=== PATIENT | female | born 1965 | race African-American/Black ===

== ENCOUNTER 2017-04-16 10:50 | Emergency (ER) | payer OTHER ==
--- NOTE | ~2017-04-16 | CR142 ---
[facility] A Service of [facility] & [facility] RADIOLOGY TEXT RESULTS PATIENT: ANTHONY VILLA LOCATION: SED : 61 UNIT #: [id number] AGE: [address]: SANDER SERRATO SEX: F ORDER DR: [id number] [place] [id number] E MR#: [id number] Acc #: [id number] NAME: ANTHONY VILLA : 1965 SEX: F STUDY DATE/TIME: 04/16/2017 11:36 UNIT: SED ROOM: STUDY DESCRIPTION: CR Hand Min 3 Views Rt Attending Physician: Sander Serrato Ordering Physician: Sander Serrato Primary Care Physician: Flower Michael M.D. MEDICAL IMAGING REPORT This report is preliminary unless electronic signature is present. EXAM Right hand 04/16/2017. INDICATIONS 51-year-old female with pain from the elbow to the hand since yesterday. Pain in the third and fifth fingers. Patient injured while riding a motorized wheelchair. Hit her entire right arm on a door; 3 views. COMPARISON No comparisons. FINDINGS The bones are osteoporotic. No acute fracture. Degenerative change of the DIP joints of all digits and of the fifth metacarpal phalangeal joint. There are also degenerative changes in the wrist. IMPRESSION 1. Osteoporosis and degenerative change, but no acute fracture. Dictated by... Geraldo Comer M.D. THIS IS AN ELECTRONICALLY VERIFIED REPORT Geraldo Comer M.D. at 04/16/2017 4:00 PM Julian TD: 04/16/2017 15:44 JOB #: [id number] MEDICAL IMAGING REPORT Page 1 of 1
--- NOTE | ~2017-04-16 | CR94 ---
[facility] A Service of [facility] RADIOLOGY TEXT RESULTS PATIENT: ANTHONY VILLA LOCATION: SED : 61 UNIT #: [id number] AGE: [address]: SANDER SERRATO SEX: F ORDER DR: [id number] [place] [id number] E MR#: [id number] Acc #: [id number] NAME: ANTHONY VILLA : 1965 SEX: F STUDY DATE/TIME: 04/16/2017 11:36 UNIT: SED ROOM: STUDY DESCRIPTION: CR Elbow Min 3 Views Rt Attending Physician: Sander Serrato Ordering Physician: Sander Serrato Primary Care Physician: Flower Michael M.D. MEDICAL IMAGING REPORT This report is preliminary unless electronic signature is present. EXAM Right elbow series 04/16/2017 INDICATIONS Pain from the elbow to the hand since yesterday. Stroke patient who injured the arm while riding a motorized wheel chair yesterday. Hit her entire right arm on a door. TECHNIQUE AND COMPARISON 3 views of the right elbow were performed. No comparisons. FINDINGS The bones are osteoporotic. The examination is abnormal, there is a complete supracondylar fracture on the right. It is best demonstrated on the lateral projection. There is an anterior joint effusion. Probable additional subtle nondisplaced radial head fracture. IMPRESSION 1. Abnormal examination. There is a complete supracondylar fracture on the right involving the medial and lateral epicondyles with a small joint effusion. 2. Probable hairline nondisplaced radial head fracture. 3. Osteoporosis. STAT * RESULT Dictated by... Geraldo Comer M.D. THIS IS AN ELECTRONICALLY VERIFIED REPORT [facility] A Service of [facility] RADIOLOGY TEXT RESULTS PATIENT: ANTHONY VILLA LOCATION: SED : 61 UNIT #: [id number] AGE: [address]: SANDER SERRATO SEX: F ORDER DR: Geraldo Comer M.D. at 04/16/2017 1:50 PM Anita TD: 04/16/2017 13:10 JOB #: [id number] MEDICAL IMAGING REPORT Page 1 of 1
--- NOTE | ~2017-04-16 | CR282 ---
[facility] A Service [facility] RADIOLOGY TEXT RESULTS PATIENT: ANTHONY VILLA LOCATION: SED : 61 UNIT #: [id number] AGE: [address]: SANDER SERRATO SEX: F ORDER DR: [id number] [place] [id number] E MR#: [id number] Acc #: [id number] NAME: ANTHONY VILLA : 1965 SEX: F STUDY DATE/TIME: 04/16/2017 11:36 UNIT: SED ROOM: STUDY DESCRIPTION: CR Wrist Min 3 View Rt Attending Physician: Sander Serrato Ordering Physician: Sander Serrato Primary Care Physician: Flowre Michael M.D. MEDICAL IMAGING REPORT This report is preliminary unless electronic signature is present. EXAM Right wrist 04/16/2017. INDICATIONS 51-year-old female with history of stroke, complaining of right wrist, forearm and elbow pain since yesterday. The patient was riding motorized wheelchair and hit her entire right arm on a door. TECHNIQUE 3 views of the right wrist. COMPARISON No comparisons. FINDINGS Exam degraded by nonstandard positioning. Bones are osteoporotic. No acute fracture. Alignment preserved on the lateral view. There is degenerative change in radiocarpal joint and between the proximal distal carpal rows with partial invagination of the distal carpal row proximally. IMPRESSION 1. Osteoporosis and degenerative change. No acute fracture. Dictated by... Geraldo Comer M.D. THIS IS AN ELECTRONICALLY VERIFIED REPORT Geraldo Comer M.D. at 04/17/2017 7:09 AM JANY/lyle TD: 04/16/2017 16:00 JOB #: [id number] [facility] A Service [facility] RADIOLOGY TEXT RESULTS PATIENT: ANTHONY VILLA LOCATION: SED : 61 UNIT #: [id number] AGE: [address]: SANDER SERRATO SEX: F ORDER DR: MEDICAL IMAGING REPORT Page 1 of 1
--- NOTE | ~2017-04-16 | CR133 ---
[facility] A Service of [facility] RADIOLOGY TEXT RESULTS PATIENT: ANTHONY VILLA LOCATION: SED : 61 UNIT #: [id number] AGE: [address]: SANDER SERRATO SEX: F ORDER DR: [id number] [place] [id number] E MR#: [id number] Acc #: [id number] NAME: ANTHONY VILLA : 1965 SEX: F STUDY DATE/TIME: 04/16/2017 11:36 UNIT: SED ROOM: STUDY DESCRIPTION: CR Forearm 2 View Rt Attending Physician: Sander Serrato Ordering Physician: Sander Serrato Primary Care Physician: Flower Michael M.D. MEDICAL IMAGING REPORT This report is preliminary unless electronic signature is present. EXAM Right forearm 04/16/2017. INDICATIONS Pain from the elbow to the hand since yesterday while riding in motorized wheelchair. She hit her entire arm on a door. Prior stroke. TECHNIQUE 2 views of the right forearm. COMPARISON No comparisons. FINDINGS The bones are osteoporotic. There are degenerative changes in the wrist. Although incompletely visualized on this examination, there is a supracondylar fracture on the right. Please see the elbow series for further details. No distinct forearm fracture identified. IMPRESSION 1. Although incompletely imaged on this examination, there is a supracondylar fracture. Please see the elbow series for further details. 2. The bones are osteoporotic. No additional fracture. Degenerative changes as described. Dictated by... Geraldo Comer M.D. THIS IS AN ELECTRONICALLY VERIFIED REPORT Geraldo Comer M.D. at 04/16/2017 4:02 PM JLY/lyle [facility] A Service of [facility] RADIOLOGY TEXT RESULTS PATIENT: ANTHONY VILLA LOCATION: SED : 61 UNIT #: [id number] AGE: [address]: SANDER SERRATO SEX: F ORDER DR: TD: 04/16/2017 15:57 JOB #: [id number] MEDICAL IMAGING REPORT Page 1 of 1
[~2017-04-16 10:50] MED LIST: ALBUTEROL17 G1 IH; CLEOCIN HCL300 M1 PO; COUMADIN5 MG PO; COUMADIN7.5 MG PO; FLONASE 0.05% N16 GM; FLONASE16 GM; LASIX PO; LEXAPRO PO; LISINOPRIL10 MG PO; PHENERGAN VC W120 M1 PO; VICODIN 5/1 TAB 5/50 PO; ZYRTEC10 M2 PO
[2017-04-16] MEDS ORDERED: FLONASE 0.05% N16 G1 (10:56)
[2017-04-16] MEDS ORDERED: NEURONTIN100 MG (10:56)
[2017-04-16] MEDS ORDERED: FLEXERIL10 MG (10:56)
[2017-04-16] MEDS ORDERED: LIPITOR20 MG (10:56)
== END 2017-04-16 14:37 | disposition home or self-care (01) ==
LOC: SED 10:50
DX: S42.411A Displaced simple supracondylar fracture without intercondylar fracture of right humerus, initial encounter for closed fracture (principal); I10 Essential (primary) hypertension; J45.909 Unspecified asthma, uncomplicated; Z79.01 Long term (current) use of anticoagulants; Z91.040 Latex allergy status; W22.8XXA Striking against or struck by other objects, initial encounter; Y92.009 Unspecified place in unspecified non-institutional (private) residence as the place of occurrence of the external cause
CPT/HCPCS: 29105; 73080; 73090; 73110; 73130; 99283